=== PATIENT | male | born 1950 | race Caucasian/White ===

== ENCOUNTER → 2019-08-14 | Outpatient (CLI) | payer MEDICARE | END | disposition home or self-care (01) | LOC: LABWHC1 10:33 | PROVIDERS: ATTEND Physician Assistant | DX: M25.521 Pain in right elbow (principal); S52.134D Nondisplaced fracture of neck of right radius, subsequent encounter for closed fracture with routine healing; M25.532 Pain in left wrist; S63.92XD Sprain of unspecified part of left wrist and hand, subsequent encounter; I10 Essential (primary) hypertension; E78.5 Hyperlipidemia, unspecified; E11.9 Type 2 diabetes mellitus without complications; E03.9 Hypothyroidism, unspecified; M79.631 Pain in right forearm | CPT/HCPCS: 36415; 82306 ==